=== PATIENT | male | born 1950 | race Caucasian/White ===

== ENCOUNTER 2017-08-09 21:00 | Emergency (ER) | payer OTHER ==
[2017-08-09] MEDS ORDERED: Diphtheria,Pertussis(Acell),Tetanus Vaccine 0.5 ML SDV IM ONE (22:34)
[2017-08-09] MEDS ORDERED: Gelatin Sponge,Absorbable 12-7 mm Sponge TOP ONE (22:45)
[2017-08-09] MEDS ORDERED: Silver Nitrate Applicator Each TOP ONE (22:45)
--- NOTE | 2017-08-09 23:14 | EDM.PDOC ---
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 No blunt trauma, no force applied Sustain a laceration to his right index. He was quite surprised when he actually looked at. The main reason to come in was because it was bleeding so much. Tetanus status not up-to-date after review of the website No other injuries - Related Data Allergies Allergy/AdvReac Type Severity Reaction Status Date / Time No Known Allergies Allergy Verified 08/09/17 22:47 Home Meds: Home Meds Acetaminophen/oxyCODONE [Percocet 325-5 MG] 1 - 2 each PO Q4H PRN #10 tab [Rx] Naproxen 200 mg PO DAILY 08/09/17 [History] Omeprazole 20 mg PO DAILY 08/09/17 [History] Secukinumab [Cosentyx Pen (2 Pens)] 300 mg IM ASDIRECTED 08/09/17 [History] Review of Systems - Review of Systems Review Of Systems: ROS reveals no pertinent complaints other than HPI. Skin: Reports: Other (Laceration to right index) ED EXAM, GENERAL - Physical Exam Exam: See Below Exam Limited By: No Limitations General Appearance: Alert, No Apparent Distress, Other (Elevated blood pressure other vital signs normal) Respiratory/Chest: No Respiratory Distress, No Accessory Muscle Use Cardiovascular: Normal Peripheral Pulses, Regular Rate, Rhythm Extremities: Other (Laceration of right index consisting of evulsion of the radial half of the distal phalanx of the index, the nail cuticle is largely preserved, the bone is not exposed, but there is significant soft tissue missing. Some active bleeding.) Neurological: Alert, Oriented, No Motor/Sensory Deficits ED TRAUMA EXTREMITY PROCEDURES - Laceration/Wound Repair Right Finger Lac/Wound Length In cm: 3 (Avulsed area 1 x 3 cm) Appearance: Subcutaneous, Other (Significant soft tissue missing) Distal NVT: Other (Because of the loss of tissue numbness of the distal tip) Anesthetic Type: Digital Local Anesthesia - Lidocaine (Xylocaine): 1% with EPI, Other (Also local anesthesia 3 mL of the same) Local Anesthetic Volume: 5cc Skin Prep: Other Exploration/Debridement/Repair: Wound Explored, Explored to Base, No Foreign Material Found Suture Size: 4-0 # of Sutures: 3 (This this helped with bleeding control) Repaired With: Vicryl Complications: Yes Complication Description: Expose subcutaneous tissue, there is no real way to suture the skin together, deficit is present, bleeding controlled with sutures as above and with silver nitrate. Dressed with Gelfoam, Telfa, Cob[place] Course - Vital Signs Last Recorded V/S: Last Vital Signs Temp 36.2 C 08/09/17 23:23 Pulse 74 08/09/17 23:23 Resp 16 08/09/17 23:23 BP 178/111 H 08/09/17 23:23 Pulse Ox 98 08/09/17 23:23 - Orders/Labs/Meds Orders: Active Orders 24 hr Category Date Time Status Vaccines to be Administered [RC] PER UNIT ROUTINE Care 08/09/17 22:35 Active Fingers Second Digit Rt F6 [CR] Stat Exams 08/09/17 22:17 Stop Req Meds: Medications Discontinued Medications Generic Name Dose Route Start Last Admin Trade Name Freq PRN Reason Stop Dose Admin Diphtheria/Tetanus/Acell Pertussis 0.5 ml 08/09/17 22:34 08/09/17 23:11 Adacel IM 08/09/17 22:35 0.5 ml .ONCE ONE Administration Gelatin 1 each 08/09/17 22:45 08/09/17 23:11 Gelfoam 12-7 Mm TOP 08/09/17 22:46 1 each ONETIME ONE Administration Silver Nitrate 1 each 08/09/17 22:45 08/09/17 23:11 Silver Nitrate TOP 08/09/17 22:46 1 each ONETIME ONE Administration - Re-Assessments/Exams Free Text/Narrative Re-Assessment/Exam: 08/09/17 23:11 67-year-old male with newly half of the medial aspect of his right index distal phalanx avulsed, See procedure note for suturing, control of bleeding Dressing applied by physician Follow-up with hand specialist in 2-3 days or at latest 7 days recommended Return to emergency for dressing change if it bleeds to the dressing otherwise follow-up in clinic for dressing change in 4-5 days Departure - Departure Time of Disposition: 23:35 Disposition: Home, Self-Care 01 Condition: Fair Clinical Impression: Laceration of right index finger with complication - Discharge Information Prescriptions: Acetaminophen/oxyCODONE [Percocet 325-5 MG] 1 - 2 each PO Q4H PRN #10 tab PRN Reason: Moderate to severe pain Instructions: VIS, Tetanus, Diphtheria (Td); Tetanus, Diphtheria, Pertussis ( Tdap) - CDC, Laceration Care, Adult Referrals: PCP,None [Primary Care Provider] - Forms: ED Department Discharge Additional Instructions: Because of a large amount of skin missing on the tip of your right index, evaluation by hand specialist within 1 week is recommended. Dressing change in 3-4 days or by the hand specialist if he has an appointment by then Return to emergency if bleeding through the dressing Tetanus diphtheria activated pertussis booster given - My Orders Last 24 Hours: My Active Orders 08/09/17 22:35 Vaccines to be Administered [RC] PER UNIT ROUTINE - Assessment/Plan Last 24 Hours: My Active Orders 08/09/17 22:35 Vaccines to be Administered [RC] PER UNIT ROUTINE
== END 2017-08-09 23:37 | disposition home or self-care (01) ==
LOC: JP.ED 21:00
DX: S61.210A Laceration without foreign body of right index finger without damage to nail, initial encounter (principal); L08.9 Local infection of the skin and subcutaneous tissue, unspecified; Z23 Encounter for immunization; Z79.899 Other long term (current) drug therapy; W26.8XXA Contact with other sharp object(s), not elsewhere classified, initial encounter
CPT/HCPCS: 12002; 90471; 90715; 99284-25